=== PATIENT | female | born 2000 | race African-American/Black ===

== ENCOUNTER 2024-11-14 22:45 | Emergency (ER) | payer MEDICAID ==
[~2024-11-14] VITALS: Ht 167.6 cm; Wt 72.7 kg
[2024-11-14 22:53] VITALS: TEMP 98.2
[2024-11-14 23:16] VITALS: BP 149/76; PULSE 86; RESP 20; O2SAT 100
[2024-11-15] MEDS ORDERED: ALBU18HF12 IH (00:02)
[2024-11-15] MEDS ORDERED: EPIN0.3P3 IM (00:02)
[2024-11-16 06:07] LABS: HEPATITIS C AB (EIA) Non Reactive (Non Reactive)
== END 2024-11-15 00:49 | disposition home or self-care (01) ==
LOC: EMS 22:54
DX: B19.20 Unspecified viral hepatitis C without hepatic coma (principal); I10 Essential (primary) hypertension; Z76.0 Encounter for issue of repeat prescription; F12.90 Cannabis use, unspecified, uncomplicated; F17.210 Nicotine dependence, cigarettes, uncomplicated; J45.909 Unspecified asthma, uncomplicated
CPT/HCPCS: 86803; 99281; 99283